=== PATIENT | female | born 1945 | race Caucasian/White ===

== ENCOUNTER 2017-11-05 19:57 | Emergency (ER) | payer MEDICARE, OTHER ==
[2017-11-05 20:11] VITALS: BP 163/64
--- NOTE | 2017-11-05 20:38 | EDM.PDOC ---
ED HPI GENERAL MEDICAL PROBLEM - General Chief Complaint: General Stated Complaint: LOW POTASSIUM Time Seen by Provider: 11/05/17 20:07 Source of Information: Reports: Patient, RN Notes Reviewed - History of Present Illness INITIAL COMMENTS - FREE TEXT/NARRATIVE: 72 old female has been referred here from the [facility] for evaluation of hypokalemia. She did have routine labs drawn this past morning. Results came back later this afternoon revealed a potassium of 2.1. She states she has felt a bit tired the last few days but really no other unusual symptoms. Did have quite marked swelling of her legs and ankles a month ago and states her diuretic therapy was increased at that time. She states she has lost about 20 pounds of fluid over the past month. His been eating and drinking without difficulty. She has no chest pain or difficulty breathing at this time. No abdominal pain nausea vomiting or diarrhea. She did take 40 mEq of potassium orally about 2 hours ago prior to coming in. - Related Data Allergies Allergy/AdvReac Type Severity Reaction Status Date / Time lomefloxacin HCl Allergy Rash Verified 05/30/14 14:54 [From [place]] Home Meds: Home Meds Diltiazem HCl [Diltiazem 24Hr ER] 360 mg PO DAILY 01/24/14 [History] LORazepam [Ativan] 0.5 mg PO TID PRN 01/24/14 [History] Oxybutynin 5 mg PO TID PRN 01/24/14 [History] Potassium Chloride 20 meq PO DAILY 01/24/14 [History] Sertraline [Zoloft] 25 mg PO DAILY 01/24/14 [History] Warfarin Sodium 5 mg PO ASDIRECTED 01/24/14 [History] Warfarin [Coumadin] 2.5 mg PO ASDIRECTED 01/24/14 [History] Metoprolol Tartrate 25 mg PO TID 11/05/17 [History] Ranitidine HCl [Ranitidine] 150 mg PO DAILY 11/05/17 [History] Past Medical History HEENT History: Reports: Impaired Vision Cardiovascular History: Reports: Afib Respiratory History: Reports: Sleep Apnea Gastrointestinal History: Reports: Irritable Bowel Syndrome Endocrine/Metabolic History: Reports: Hypothyroidism - Past Surgical History HEENT Surgical History: Reports: Cataract Surgery Female Surgical History: Reports: Section, Tubal Ligation Musculoskeletal Surgical History: Reports: Shoulder Surgery Social & Family History - Family History Family Medical History: Noncontributory - Tobacco Use Smoking Status *Q: Never Smoker Second Hand Smoke Exposure: No - Caffeine Use Caffeine Use: Reports: Soda, Tea - Alcohol Use Days Per Week of Alcohol Use: 0 Number of Drinks Per Day: 0 Total Drinks Per Week: 0 - Recreational Drug Use Recreational Drug Use: No Drug Use in Last 12 Months: No ED ROS GENERAL - Review of Systems Review Of Systems: See Below Constitutional: Denies: Fever, Chills, Diaphoresis HEENT: Denies: Throat Pain Respiratory: Denies: Shortness of Breath, Pleuritic Chest Pain, Cough Cardiovascular: Denies: Chest Pain Endocrine: Reports: Fatigue GI/Abdominal: Denies: Abdominal Pain, Diarrhea, Nausea, Vomiting Musculoskeletal: Reports: No Symptoms Skin: Reports: No Symptoms Neurological: Reports: No Symptoms ED EXAM, GENERAL - Physical Exam Exam: See Below General Appearance: Alert, No Apparent Distress Eye Exam: Bilateral Eye: PERRL Throat/Mouth: Normal Inspection, Normal Oropharynx Head: No: Facial Swelling Neck: Supple, Full Range of Motion, Other Respiratory/Chest: No Respiratory Distress (No JVD), Lungs Clear, Normal Breath Sounds Cardiovascular: Regular Rate, Rhythm GI/Abdominal: Soft, Non-Tender. No: Guarding Back Exam: No: CVA Tenderness (L), CVA Tenderness (R) Extremities: Normal Inspection. No: Pedal Edema, Leg Pain Neurological: Alert, Oriented, No Motor/Sensory Deficits Skin Exam: Warm, Dry, Normal Color EKG INTERPRETATION EKG Date: 11/05/17 Rhythm: A-Fib Rate (Beats/Min): 78 [place]: Normal QRS: RBBB ST-T: Normal Course - Vital Signs Last Recorded V/S: Last Vital Signs Temp 98 F 11/05/17 20:07 Pulse 58 L 11/05/17 20:07 Resp 18 11/05/17 20:07 BP 163/64 H 11/05/17 20:07 Pulse Ox 93 L 11/05/17 20:07 - Orders/Labs/Meds Orders: Active Orders 24 hr Category Date Time Status EKG 12 Lead [EKG Documentation Completion] [RC] STAT Care 11/05/17 20:35 Active Labs: Laboratory Tests 11/05/17 11/05/17 Range/Units 20:54 23:10 Sodium 136 (136-145) mEq/L Potassium 2.1 L* 2.4 L* (3.5-5.1) mEq/L Chloride 92 L (98-107) mEq/L Carbon Dioxide 34 H (21-32) mEq/L Anion Gap 12.1 (5-15) BUN 36 H (7-18) mg/dL Creatinine 1.6 H (0.55-1.02) mg/dL Est Cr Clr Drug Dosing 22.16 mL/min Estimated GFR (MDRD) 32 (>60) mL/min BUN/Creatinine Ratio 22.5 H (14-18) Glucose 131 H (83-115) mg/dL Calcium 9.1 (8.5-10.1) mg/dL Total Bilirubin 0.8 (0.2-1.0) mg/dL AST 28 (15-37) U/L ALT 36 (14-59) U/L Alkaline Phosphatase 89 (46-116) U/L Total Protein 7.5 (6.4-8.2) g/dl Albumin 3.8 (3.4-5.0) g/dl Globulin 3.7 gm/dL Albumin/Globulin Ratio 1.0 (1-2) Meds: Medications Discontinued Medications Generic Name Dose Route Start Last Admin Trade Name Freq PRN Reason Stop Dose Admin Potassium Chloride 10 meq/ 100 mls @ 50 mls/hr 11/05/17 21:26 11/05/17 21:44 Premix IV 11/05/17 23:25 50 mls/hr ASDIRECTED ONE Administration Potassium Chloride 40 meq 11/05/17 21:27 11/05/17 21:48 Klor-Con M20 PO 11/05/17 21:28 40 meq ONETIME ONE Administration - Re-Assessments/Exams Free Text/Narrative Re-Assessment/Exam: 11/05/17 23:50 Chemistries on arrival showed potassium 2.1, unchanged from level of earlier today. We have given 40 mEq potassium orally and also 10 mEq IV. Check short time ago was 2.4. Shouldn't feels fine. Other than feeling somewhat tired she really is quite asymptomatic. I suspect her decline to this level has been very gradual allowing her to tolerate a 2.1 level better. She does feel up to going home. Pressure has been stable. She has been in atrial fib with a rate in the 70s, 80s and 90s. She has been ambulatory without difficulty. Discharge instructions as documented. Departure - Departure Time of Disposition: 23:49 Disposition: Home, Self-Care 01 Condition: Fair Clinical Impression: Hypokalemia - Discharge Information Referrals: Amanda Rangel PA-C [Primary Care Provider] - Forms: ED Department Discharge Additional Instructions: Increase her potassium to 20 mEq 3 times daily for now. Decreased her furosemide to 40 mg in the morning and then 20 mg at noon. Check your weight daily. If your weight goes up 2 pounds or more than you will need to go back to the 80 mg furosemide daily dosage. Continue other medications as currently prescribed. Bananas are an excellent source of potassium. Other fruits and vegetables along with potatoes are good as well. Follow-up clinic next Thursday or Thursday for potassium recheck. Return to ED as needed. - My Orders Last 24 Hours: My Active Orders 11/05/17 20:35 EKG 12 Lead [EKG Documentation Completion] [RC] STAT - Assessment/Plan Last 24 Hours: My Active Orders 11/05/17 20:35 EKG 12 Lead [EKG Documentation Completion] [RC] STAT
[2017-11-05] MEDS ORDERED: Potassium Chloride 10 MEQ in Premix Bag 1 BAG IV ONE (21:26)
[2017-11-05] MEDS ORDERED: Potassium Chloride 20 MEQ Tab.ER PO ONE (21:27)
== END 2017-11-05 23:59 | disposition home or self-care (01) ==
LOC: JD.ED 19:57
DX: E87.6 Hypokalemia (principal); I48.91 Unspecified atrial fibrillation; E03.9 Hypothyroidism, unspecified; Z79.01 Long term (current) use of anticoagulants; Z79.899 Other long term (current) drug therapy; Z88.1 Allergy status to other antibiotic agents
CPT/HCPCS: 36415; 80053; 84132; 93005; 96365; 96366; 99285-25; A9270-GY; J3480

== ENCOUNTER 2022-12-09 09:34 | Day surgery (SDC) | payer MEDICARE, BC ==
[~2022-12-09 09:34] MED LIST: Lactated Ringers 1,000 ML IV SCH; Lidocaine 1%/Sod Bicarbonate in NS 8.4% 1 ML Syringe IDERM PRN; Sodium Chloride 0.9% 10 ML Syringe FLUSH PRN; Sodium Chloride 0.9% 10 ML Syringe FLUSH SCH
[2022-12-09] MEDS ORDERED: Lidocaine 1% 2 ML ONE (10:11)
[2022-12-09] MEDS ORDERED: Propofol 200 MG/20 ML SDV ONE (10:11)
[2022-12-09] MEDS ORDERED: Midazolam 1 MG/ML 2 ML SDV ONE (10:11)
[2022-12-09] MEDS ORDERED: fentaNYL 100 MCG/2 ML SDV ONE (10:11)
[2022-12-09 13:57] VITALS: BP 116/70; PULSE 76
== END 2022-12-09 12:20 | disposition home or self-care (01) ==
LOC: JD.SDS 09:34
PROVIDERS: ATTEND Surgery
DX: Z12.11 Encounter for screening for malignant neoplasm of colon (principal); D12.2 Benign neoplasm of ascending colon; K57.30 Diverticulosis of large intestine without perforation or abscess without bleeding; I48.91 Unspecified atrial fibrillation; F41.9 Anxiety disorder, unspecified; K21.9 Gastro-esophageal reflux disease without esophagitis; E03.9 Hypothyroidism, unspecified; J45.909 Unspecified asthma, uncomplicated; I10 Essential (primary) hypertension; G47.33 Obstructive sleep apnea (adult) (pediatric); Z86.010 Personal history of colon polyps; Z80.0 Family history of malignant neoplasm of digestive organs; Z88.1 Allergy status to other antibiotic agents; Z88.8 Allergy status to other drugs, medicaments and biological substances; Z79.890 Hormone replacement therapy; Z79.899 Other long term (current) drug therapy; Z79.01 Long term (current) use of anticoagulants
CPT/HCPCS: 36415; 45385; 85610; J2250; J2704; J3010; J7120; 00811; 99100; J3490

== ENCOUNTER 2025-07-13 10:13 | Emergency (ER) | payer MEDICARE, BC ==
[2025-07-13 11:09] LABS: BASOPHILS ABSOLUTE AUTO 0.0 K/mm3 (0.0-0.2); BASOPHILS PERCENT AUTO 0.4 % (0.0-1.0); EOSINOPHILS ABSOLUTE AUTO 0.1 K/mm3 (0.0-0.4); EOSINOPHILS PERCENT AUTO 0.7 % (0.0-6.0); IMMATURE GRAN ABSOLUTE AUTO 0.03 K/mm3 (0.00-0.05); IMMATURE GRAN PERCENT AUTO 0.4 % (0.0-0.4); LYMPHOCYTES ABSOLUTE AUTO 0.6 K/mm3 (1.0-4.8); LYMPHOCYTES PERCENT AUTO 7.0 % (24.0-44.0); MEAN PLATELET VOLUME 10.4 fl (9.4-12.3); MONOCYTES ABSOLUTE AUTO 0.6 K/mm3 (0.0-0.8); MONOCYTES PERCENT AUTO 6.8 % (0.0-8.0); NEUTROPHILS ABSOLUTE AUTO 6.9 K/mm3 (1.8-7.7); NEUTROPHILS PERCENT AUTO 84.7 % (41.0-71.0); NRBC ABSOLUTE 0.00 (0.00-0.02); NRBC PERCENT 0.0 % (0.0-0.2); PLATELET COUNT,PLT 151 K/mm3 (150-400); RED BLOOD CELL COUNT 5.16 M/mm3 (4.10-5.30); WHITE BLOOD CELL COUNT,WBC 8.10 K/mm3 (3.9-11.3)
[2025-07-13 11:30] LABS: INR 3.0
[2025-07-13 11:34] LABS: A/G RATIO 1.3 (1-2); ALANINE AMINOTRANSFERASE,ALT 21 U/L (14-59); ASPARTATE AMNIOTRANSFERASE,AST 24 U/L (15-37); BILIRUBIN TOTAL 0.5 mg/dL (0.2-1.0); BLOOD UREA NITROGEN,BUN 21 mg/dL (7-18); CARBON DIOXIDE,CO2 26 mEq/L (21-32); CHLORIDE,CL 103 mEq/L (98-107); CREATININE 1.1 mg/dL (0.55-1.02); ESTIMATED GFR 50 mL/min (>60); GLUCOSE RANDOM 104 mg/dL (70-99); PROTEIN TOTAL,TP 7.0 g/dl (6.4-8.2); SODIUM,NA 140 mEq/L (136-145)
[2025-07-13 11:38] LABS: POTASSIUM,K 4.7 mEq/L (3.5-5.1)
[2025-07-13 14:11] LABS: APPEARANCE,URINE CLEAR (Clear); GLUCOSE,URINE NEGATIVE (Negative); OCCULT BLOOD,URINE 3+ (Negative)
[2025-07-13 14:29] LABS: EPITHELIAL CELLS,URINE 0-5 /hpf (0-5)
[2025-07-13 17:09] VITALS: BP 108/79; PULSE 88
== END 2025-07-13 15:00 | disposition home or self-care (01) ==
LOC: JD.ED 10:13
DX: S02.2XXA Fracture of nasal bones, initial encounter for closed fracture (principal); S01.81XA Laceration without foreign body of other part of head, initial encounter; S09.90XA Unspecified injury of head, initial encounter; N39.0 Urinary tract infection, site not specified; I48.91 Unspecified atrial fibrillation; I11.0 Hypertensive heart disease with heart failure; I50.9 Heart failure, unspecified; J45.909 Unspecified asthma, uncomplicated; E03.9 Hypothyroidism, unspecified; Z79.01 Long term (current) use of anticoagulants; Z88.8 Allergy status to other drugs, medicaments and biological substances; W01.198A Fall on same level from slipping, tripping and stumbling with subsequent striking against other object, initial encounter
CPT/HCPCS: 12011; 36415; 70450; 70450-26; 72125; 72125-26; 72192; 72192-26; 73130-26-RT; 73130-RT; 73552-26-LT; 73552-LT; 80053; 81001; 85025; 85610; 93005; 93010; 99283; 99284; J2003

== ENCOUNTER 2025-09-05 11:44 | Emergency (ER) | payer MEDICARE, BC ==
[2025-09-05 12:27] LABS: APPEARANCE,URINE CLEAR (Clear); GLUCOSE,URINE NEGATIVE (Negative); OCCULT BLOOD,URINE 3+ (Negative)
[2025-09-05] MEDS ORDERED: Sodium Chloride 0.9% 10 ML Syringe FLUSH PRN (12:34)
[2025-09-05 12:52] LABS: BASOPHILS ABSOLUTE AUTO 0.0 K/mm3 (0.0-0.2); BASOPHILS PERCENT AUTO 0.4 % (0.0-1.0); EOSINOPHILS ABSOLUTE AUTO 0.0 K/mm3 (0.0-0.4); EOSINOPHILS PERCENT AUTO 0.1 % (0.0-6.0); IMMATURE GRAN ABSOLUTE AUTO 0.02 K/mm3 (0.00-0.05); IMMATURE GRAN PERCENT AUTO 0.2 % (0.0-0.4); LYMPHOCYTES ABSOLUTE AUTO 0.8 K/mm3 (1.0-4.8); LYMPHOCYTES PERCENT AUTO 9.7 % (24.0-44.0); MEAN PLATELET VOLUME 10.4 fl (9.4-12.3); MONOCYTES ABSOLUTE AUTO 0.5 K/mm3 (0.0-0.8); MONOCYTES PERCENT AUTO 5.7 % (0.0-8.0); NEUTROPHILS ABSOLUTE AUTO 6.8 K/mm3 (1.8-7.7); NEUTROPHILS PERCENT AUTO 83.9 % (41.0-71.0); NRBC ABSOLUTE 0.00 (0.00-0.02); NRBC PERCENT 0.0 % (0.0-0.2); PLATELET COUNT,PLT 148 K/mm3 (150-400); RED BLOOD CELL COUNT 4.99 M/mm3 (4.10-5.30); WHITE BLOOD CELL COUNT,WBC 8.14 K/mm3 (3.9-11.3)
[2025-09-05 13:00] LABS: SQUAMOUS EPITHELIAL CELLS,UR 0-5 /hpf (0-5)
[2025-09-05 13:09] LABS: INR 2.99
[2025-09-05 13:12] LABS: A/G RATIO 1.2 (1-2); ALANINE AMINOTRANSFERASE,ALT 10.0 U/L (14-59); ASPARTATE AMNIOTRANSFERASE,AST 14.0 U/L (15-37); BILIRUBIN TOTAL 0.7 mg/dL (0.2-1.0); BLOOD UREA NITROGEN,BUN 17.0 mg/dL (7-18); CARBON DIOXIDE,CO2 26.0 mEq/L (21-32); CHLORIDE,CL 104.0 mEq/L (98-107); CREATININE 0.9 mg/dL (0.55-1.02); EST CRCL DRUG DOSING (CG) 34.62 mL/min; ESTIMATED GFR 64.0 mL/min (>60); GLUCOSE RANDOM 106.0 mg/dL (70-99); POTASSIUM,K 4.0 mEq/L (3.5-5.1); PROTEIN TOTAL,TP 6.5 g/dl (6.4-8.2); SODIUM,NA 139.0 mEq/L (136-145)
[2025-09-05] MEDS: Iopamidol 612 MG/ML 100 ML Bottle IVPUSH ONE (13:52)
[2025-09-05] MEDS: Sodium Chloride 0.9% 10 ML Syringe FLUSH PRN (13:52)
[2025-09-05 17:23] VITALS: BP 139/108; PULSE 78
== END 2025-09-05 17:29 | disposition home or self-care (01) ==
LOC: JD.ED 11:44
DX: R31.0 Gross hematuria (principal); I11.0 Hypertensive heart disease with heart failure; I50.9 Heart failure, unspecified; I48.91 Unspecified atrial fibrillation; K21.9 Gastro-esophageal reflux disease without esophagitis; Z86.16 Personal history of COVID-19; Z88.8 Allergy status to other drugs, medicaments and biological substances; Z79.899 Other long term (current) drug therapy; Z79.01 Long term (current) use of anticoagulants; Z79.890 Hormone replacement therapy
CPT/HCPCS: 36415; 74177; 80053; 81001; 83690; 85025; 85610; 99284; J7030; Q9967; 81003-QW; 87086; 99283